=== PATIENT | female | born 1970 | race African-American/Black ===

== ENCOUNTER 2023-02-22 09:14 | Emergency (ER) | payer MEDICAID ==
[~2023-02-22] VITALS: Ht 167.6 cm; Wt 73.0 kg
[2023-02-22 09:17] VITALS: BP 177/111
[2023-02-22] MEDS ORDERED: TOPUD PO (10:29)
== END 2023-02-22 11:40 | disposition home or self-care (01) ==
LOC: ER 10:16
DX: R07.0 Pain in throat (principal); I10 Essential (primary) hypertension; R51.9 Headache, unspecified
CPT/HCPCS: 99284

== ENCOUNTER 2023-02-24 11:57 | Emergency (ER) | payer MEDICAID ==
[~2023-02-24] VITALS: Ht 170.2 cm; Wt 81.8 kg
[~2023-02-24 11:57] MED LIST: TOPUD PO
[2023-02-24] MEDS ORDERED: LIDO700A30 TP (12:27)
[2023-02-24] MEDS ORDERED: LIDOCAINE 5% PATCH TOP SCH (12:30)
[2023-02-24] MEDS ORDERED: KETOROLAC 30MG/ML VIAL IM ONE (12:30)
[2023-02-24 12:48] VITALS: BP 155/85
== END 2023-02-24 13:39 | disposition home or self-care (01) ==
LOC: ER 11:57
DX: S39.012A Strain of muscle, fascia and tendon of lower back, initial encounter (principal); S40.022A Contusion of left upper arm, initial encounter; I10 Essential (primary) hypertension; X58.XXXA Exposure to other specified factors, initial encounter; Y93.89 Activity, other specified; Y92.89 Other specified places as the place of occurrence of the external cause; Y99.8 Other external cause status
CPT/HCPCS: 96372; 99283; J1885; Z7610

== ENCOUNTER 2023-03-04 13:34 | Emergency (ER) | payer MEDICAID ==
[~2023-03-04] VITALS: Ht 170.2 cm; Wt 88.0 kg
[~2023-03-04 13:34] MED LIST changes: +LIDO700A30 TP
[2023-03-04 13:38] VITALS: BP 145/109
[2023-03-04] MEDS ORDERED: CYCL10TA21 MT (16:08)
[2023-03-04] MEDS ORDERED: IBUP-2029 MT (16:08)
[2023-03-04] MEDS ORDERED: KETOROLAC 60MG/2ML VIAL IM ONE (16:15)
== END 2023-03-04 16:17 | disposition home or self-care (01) ==
LOC: ER 13:34
DX: S80.01XA Contusion of right knee, initial encounter (principal); I10 Essential (primary) hypertension; V99.XXXA Unspecified transport accident, initial encounter; Y93.89 Activity, other specified; Y92.89 Other specified places as the place of occurrence of the external cause; Y99.8 Other external cause status
CPT/HCPCS: 73560; 96372; 99283; J1885; Z7610